=== PATIENT | female | born 1990 | race African-American/Black ===

== ENCOUNTER 2019-07-06 03:08 | Emergency (ER) | payer MEDICARE, OTHER ==
[~2019-07-06] VITALS: Ht 162.6 cm; Wt 93.0 kg
[~2019-07-06 03:08] MED LIST: AMOX500C PO; HYDR-2145 PO; QUET200T4 PO
[2019-07-06 03:20] VITALS: BP 117/56
[2019-07-06] MEDS ORDERED: SULF1TAB24 PO (04:12)
--- NOTE | 2019-07-06 04:13 | PHYS DOC ---
Past Medical History Past Medical History: Bipolar, Hypertension, Schizophrenia Additional Past Medical Histor: borderline DM; hyperlipidemia; high prolactin Past Surgical History: Alcohol Use: Occasionally Drug Use: Marijuana Adult General Chief Complaint Chief Complaint: TOE PROBLEM HPI HPI Patient is a 28-year-old female who presents with complaint of pain around her left great toenail. She also indicates that there seems to be some swelling to the nail itself as well as around the nail. She reports pain is mild and states that she had been out dancing tonight and toenail has gotten loose and more tender around the nail.[] Review of Systems Review of Systems Constitutional: Denies fever or chills [] Respiratory: Denies cough or shortness of breath [] Cardiovascular: No additional information not addressed in HPI [] Musculoskeletal: Positive left great toe pain [] Integument: Denies rash or skin lesions [] Allergies Allergies Allergies Coded Allergies Type Severity Reaction Last Updated Verified Haloperidol Lactate Allergy Intermediate muscle spasms 08/14/14 Yes haloperidol Allergy Intermediate muscle spasms 08/14/14 Yes risperidone Allergy Intermediate muscle spasms 08/14/14 Yes Physical Exam Physical Exam Constitutional: Well developed, well nourished, no acute distress, non-toxic appearance. [] Cardiovascular:Heart rate regular rhythm, no murmur [] Lungs & Thorax: Bilateral breath sounds clear to auscultation [] Skin: Warm, dry, no erythema, no rash. [] Extremities: Examination of the left great toe demonstrates thickening of the nail. There is swelling around the medial border of the nail consistent with paronychia. [] Current Patient Data Vital Signs Vital Signs Date Time Temp Pulse Resp B/P (MAP) Pulse Ox O2 Delivery O2 Flow Rate FiO2 07/06/19 03:20 97.9 52 14 117/56 (76) 99 Room Air 97.9 EKG EKG [] Radiology/Procedures Radiology/Procedures [] Course & Med Decision Making Course & Med Decision Making Pertinent Labs and Imaging studies reviewed. (See chart for details) [] Dragon Disclaimer Dragon Disclaimer This electronic medical record was generated, in whole or in part, using a voice recognition dictation system. Departure Departure Impression: Primary Impression: Paronychia due to ingrown nail Disposition: 01 HOME, SELF-CARE Condition: STABLE Referrals: UNKNOWN PCP NAME (PCP) Patient Instructions: Paronychia Scripts Sulfamethoxazole/Trimethoprim (BACTRIM DS TABLET) 1 Each Tablet 1 TAB PO BID for 10 Days, #20 TAB 0 Refills Prov: ELSIE WOODSON Jr. DO 07/06/19 ELSIE WOODSON Jr. DO Jul 06, 2019 04:13
== END 2019-07-06 04:36 | disposition home or self-care (01) ==
LOC: ER 03:08
DX: L03.032 Cellulitis of left toe (principal); L60.0 Ingrowing nail; F31.9 Bipolar disorder, unspecified; I10 Essential (primary) hypertension; E78.5 Hyperlipidemia, unspecified; Z98.890 Other specified postprocedural states; Z88.8 Allergy status to other drugs, medicaments and biological substances
CPT/HCPCS: 99283

== ENCOUNTER 2019-07-12 22:45 | Emergency (ER) | payer MEDICARE, OTHER ==
[~2019-07-12] VITALS: Ht 162.6 cm; Wt 93.0 kg
[~2019-07-12 22:45] MED LIST changes: +SULF1TAB24 PO
--- NOTE | 2019-07-13 00:41 | PHYS DOC ---
Past Medical History Past Medical History: Bipolar, Hypertension, Seizure, Schizophrenia Additional Past Medical Histor: borderline DM; hyperlipidemia; high prolactin (GRACY YARBROUGH APRN) Past Surgical History: (GRACY YARBROUGH APRN) Alcohol Use: Occasionally Drug Use: Marijuana (GRACY YARBROUGH APRN) Adult General Chief Complaint Chief Complaint: PSYCH EVALUATION HPI HPI Patient is a 28 year old female who presents with history of bipolar and schi zophrenia. Patient comes in today because she states she just got out of to [facility] in April and now she wants to hurt although women that she lives in a retirement house for. Patient states she does not trust them and she does not feel safe. Patient then begins talking about how if she goes down [place] the men and women can touch her as much they want to but she can't touch them or she'll get Back to alf. Patient then states she wants her vital signs taken, a meal, and to sleep here. Patient has her medications but has not been taking them properly. Patient is homicidal but has no plan. Patient denies suicidal ideation or any attempts. Patient is acting very anxious and paranoid in the room. (GRACY YARBROUGH APRN) Review of Systems Review of Systems Constitutional: Homicidal, schizophrenic. Denies fever or chills [] All other systems were reviewed and found to be within normal limits, except as documented in this note. (GRACY YARBROUGH APRN) Current Medications Current Medications Current Medications Medications (Trade) Dose Ordered Sig/Arlien Start Time Stop Time Status Last Admin Dose Admin Lorazepam (Ativan Inj) 1 mg 1X ONCE 07/13/19 04:15 07/13/19 04:18 DC Sodium Chloride 1,000 ml @ 1,000 mls/hr 1X ONCE 07/13/19 01:00 07/13/19 01:59 DC 07/13/19 01:00 1,000 MLS/HR (MARTHA OSPINA MD) Allergies Allergies Allergies Coded Allergies Type Severity Reaction Last Updated Verified Haloperidol Lactate Allergy Intermediate muscle spasms 08/14/14 Yes haloperidol Allergy Intermediate muscle spasms 08/14/14 Yes risperidone Allergy Intermediate muscle spasms 08/14/14 Yes (MARTHA OSPINA MD) Physical Exam Physical Exam Constitutional: Well developed, well nourished, no acute distress, non-toxic appearance. [] HENT: Normocephalic, atraumatic, bilateral external ears normal, oropharynx moist, no oral exudates, nose normal. [] Eyes: PERRLA, EOMI, conjunctiva normal, no discharge. [] Neck: Normal range of motion, no tenderness, supple, no stridor. [] Cardiovascular:Heart rate regular rhythm, no murmur [] Lungs & Thorax: Bilateral breath sounds clear to auscultation [] Skin: Warm, dry, no erythema, no rash. [] Neurologic: Alert and oriented X 3, normal motor function, normal sensory function, no focal deficits noted. [] Psychologic: Affect normal, judgement abnormal, mood abnormal, paranoid, anxious, homicidal. [] (GRACY YARBROUGH APRN) Current Patient Data Vital Signs Vital Signs Date Time Temp Pulse Resp B/P (MAP) Pulse Ox O2 Delivery O2 Flow Rate FiO2 07/13/19 00:00 90 18 156/93 (114) 95 Room Air 07/12/19 22:45 98.6 98.6 (MARTHA OSPINA MD) Lab Values Laboratory Tests Test 07/13/19 01:00 White Blood Count 7.7 x10^3/uL (4.0-11.0) Red Blood Count 4.60 x10^6/uL (3.50-5.40) Hemoglobin 14.4 g/dL (12.0-15.5) Hematocrit 42.0 % (36.0-47.0) Mean Corpuscular Volume 91 fL (79-100) Mean Corpuscular Hemoglobin 31 pg (25-35) Mean Corpuscular Hemoglobin Concent 34 g/dL (31-37) Red Cell Distribution Width 13.8 % (11.5-14.5) Platelet Count 287 x10^3/uL (140-400) Neutrophils (%) (Auto) 59 % (31-73) Lymphocytes (%) (Auto) 28 % (24-48) Monocytes (%) (Auto) 12 % (0-9) H Eosinophils (%) (Auto) 0 % (0-3) Basophils (%) (Auto) 1 % (0-3) Neutrophils # (Auto) 4.5 x10^3/uL (1.8-7.7) Lymphocytes # (Auto) 2.2 x10^3/uL (1.0-4.8) Monocytes # (Auto) 1.0 x10^3/uL (0.0-1.1) Eosinophils # (Auto) 0.0 x10^3/uL (0.0-0.7) Basophils # (Auto) 0.1 x10^3/uL (0.0-0.2) Sodium Level 137 mmol/L (136-145) Potassium Level 3.5 mmol/L (3.5-5.1) Chloride Level 97 mmol/L (98-107) L Carbon Dioxide Level 29 mmol/L (21-32) Anion Gap 11 (6-14) Blood Urea Nitrogen 10 mg/dL (7-20) Creatinine 1.3 mg/dL (0.6-1.0) H Estimated GFR (Cockcroft-Gault) 58.6 Glucose Level 104 mg/dL (70-99) H Calcium Level 9.5 mg/dL (8.5-10.1) Ethyl Alcohol Level < 10 mg/dL (0-10) Laboratory Tests 07/13/19 01:00 Laboratory Tests 07/13/19 01:00 (MARTHA OSPINA MD) EKG EKG [] (GRACY YARBROUGH APRN) Radiology/Procedures Radiology/Procedures [] (GRACY YARBROUGH APRN) Course & Med Decision Making Course & Med Decision Making Alert and oriented. When asked if patient would give us a urine sample she states that she also wants a test but doesn't want to give a urine sample and is not want to drink any fluids. Lungs are clear to auscultation all lobes. Vital signs within normal limits. PAT has gone in and spoken with the patient. Awaiting lab results and placement. Patient is reported off to Dr Ospina at 0118. (GRACY YARBROUGH APRN) Course & Med Decision Making Patient care transferred to [facility] at 0100 for psychiatric placement. Patient was evaluated by PAT team staff and had criteria for RSI back there is no transportation available a.m. Plan to keep patient on to 6 AM to provide a transportation and transfer patient to [facility]. Patient was hallucinating and talking herself since she came to ER but currently able to fall asleep. Plan to transfer the patient to Dr. Ac at 0600. (MARTHA OSPINA MD) Course & Med Decision Making I received signout from 6 AM patient BHAVESH patient was awaiting transfer to [facility] When the [facility] medical transport arrived she was very paranoid about that, she refused to go she was very paranoid she was actively hallucinating in the emergency room department. Whether or not there appeared to be unable to care for her basic needs was not taking her medications, was having homicidal thoughts towards residents of the retirement house that she was in. The involuntary screen her to come in and filed involuntary paperwork on this patient. Patient was accepted at [facility] I SPOKE WITH DR ORTIZ Who accepted the patient patient did require Geodon as well as restraints ultima telyFOR TRANSFER. I CHECKED ON HER AFTER THE RESTRAINTS SHE WAS STABLE RESIRATORY DUNBAR, MEDICALY CLEAR. (WILMA RIVERA MD) Dragon Disclaimer Dragon Disclaimer This electronic medical record was generated, in whole or in part, using a voice recognition dictation system. (GRACY YARBROUGH APRN) Departure Departure Impression: Primary Impression: Psychosis Disposition: 65 XFER TO PSYCH HOSP/UNIT Condition: STABLE Referrals: UNKNOWN PCP NAME (PCP) GRACY YARBROUGH APRN Jul 13, 2019 00:41 MARTHA OSPINA MD Jul 13, 2019 04:54 WILMA RIVERA MD Jul 13, 2019 13:23
[2019-07-13] MEDS ORDERED: IV NORMAL SALINE 1000ML BAG 1,000 ML IV ONE (01:00)
[2019-07-13 01:15] LABS: BASO # 0.1 x10^3/uL (0.0-0.2); BASO % 1 % (0-3); EOS % 0 % (0-3); HEMOGLOBIN 14.4 g/dL (12.0-15.5); LYMPH # 2.2 x10^3/uL (1.0-4.8); LYMPH % 28 % (24-48); MEAN CORPUSCULAR HEMOGLOBIN 31 pg (25-35); MEAN CORPUSCULAR HGB CONC 34 g/dL (31-37); MEAN CORPUSCULAR VOLUME 91 fL (79-100); MONO % 12 % (0-9); NEUT # 4.5 x10^3/uL (1.8-7.7); NEUT % 59 % (31-73); PLATELET COUNT 287 x10^3/uL (140-400); RED CELL DISTRIBUTION WIDTH 13.8 % (11.5-14.5); WHITE BLOOD COUNT 7.7 x10^3/uL (4.0-11.0)
[2019-07-13 01:42] LABS: CALCIUM 9.5 mg/dL (8.5-10.1); CREATININE 1.3 mg/dL (0.6-1.0); GFR 58.6; POTASSIUM 3.5 mmol/L (3.5-5.1)
--- NOTE | 2019-07-13 07:39 | RAD ---
EXAM: AP View of the chest DATE: 07/13/2019 7:23 AM INDICATION: Shortness of breath COMPARISON: No Prior FINDINGS: The heart is not enlarged. Mediastinal and hilar contours are normal. No focal parenchymal airspace opacity. No pleural effusion or pneumothorax. IMPRESSION: 1. No radiographic evidence for acute cardiopulmonary process. Electronically signed by: Jeff Plummer MD (07/13/2019 7:36 AM) [facility]
[2019-07-13] MEDS ORDERED: ZIPRASIDONE IM 20 MG VIAL. IM ONE (09:45)
[2019-07-13 13:30] VITALS: BP 107/64
== END 2019-07-13 13:45 | disposition short-term general hospital (02) ==
LOC: ER 22:45
DX: F20.9 Schizophrenia, unspecified (principal); F31.9 Bipolar disorder, unspecified; I10 Essential (primary) hypertension; E78.5 Hyperlipidemia, unspecified; Z98.890 Other specified postprocedural states; Z88.8 Allergy status to other drugs, medicaments and biological substances
CPT/HCPCS: 36415; 71045; 80048; 84702; 85025; 99285; G0480; J3486; J7030